=== PATIENT | female | born 1940 | race African-American/Black ===

== ENCOUNTER 2017-04-22 16:24 | Observation (INO) | payer OTHER ==
[~2017-04-22] VITALS: Ht 172.7 cm; Wt 98.9 kg
[2017-04-22 16:00] VITALS: BP 187/98; PULSE 85; RESP 20; TEMP 98.1; O2SAT 96
[~2017-04-22 16:24] MED LIST: AMIT50TA3 PO; CENTCHW4 CHEW; DORZ2SOL EACH EYE; FISHCAP4 PO; HUMA75IN SQ; HYDR-3583 PO; LATA0.002 EACH EYE; LOSA50TA2 PO; METF500T PO; NALOXONE HCL 0.4 MG/ML AMP IV PRN; ONDANSETRON HCL 4 MG/2 ML VIAL IVP PRN; SODIUM CHLORIDE 0.9% FLUSH 10 ML FLUSH IV FLUSH PRN
[2017-04-22] MEDS: ACETAMINOPHEN/HYDROcodone 325 MG/10 MG TAB PO PRN ×2 (16:53→21:25)
[2017-04-22] MEDS ORDERED: HUMA75IN SQ ×2 (17:00)
[2017-04-22] MEDS ORDERED: ACETAMINOPHEN 325 MG TAB PO PRN (17:00)
[2017-04-22] MEDS ORDERED: BISACODYL 10 MG SUPP RECTAL PRN (17:00)
[2017-04-22] MEDS ORDERED: DEXTROSE 50% IN WATER 50 ML VIAL(D50) IV PRN (17:15)
[2017-04-22] MEDS ORDERED: GLUCAGON 1 MG/ML VIAL OTHER PRN (17:15)
--- NOTE | 2017-04-22 17:26 | HHI.HP ---
[facility] Primary [facility] Physician Unknown Admission Diagnosis Diagnoses: (1) Lower extremity edema Diagnosis: Principal (2) Accelerated hypertension Diagnosis: Principal (3) Hyperlipidemia Diagnosis: Secondary (4) Diabetes Diagnosis: Secondary Chief Complaint: Lower extremity edema Travel History International Travel<30 Days: No Contact w/Intl Traveler <30 Da: No History of Present Illness Written by Iglesia Enamorado, acting as scribe for Dr. Guerra on 04/22/17 at 17: 10. 76-year-old female with known history of hypertension, diabetes, chronic back pain, chronic cephalgia who presented to hospital because of lower extremity edema. Patient indicates that she is probably 3 week history of lower extremity edema. She has been to her primary medical doctor's office and is undergoing management and workup at this time, she was started on Lasix. She indicates that Lasix does not work for her edema. Patient denies any chest pain , shortness of breath, dyspnea. Unable to determine if she has dyspnea on exertion because she states that she does not walk that much due to her chronic back pain. She does use a walker intermittently for ambulation. Patient does not recall ever having any type of ultrasound done of her heart. Patient indicates that she is had this swelling for approximately 3 weeks and started develop some black discoloration of her feet so she was worried because of her diabetes so she came to the ER for evaluation. 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 Since then she's been having headache has undergone MRI studies and was told by a neurologist that she has migraine cephalgia. She does not feel that that is appropriate diagnosis. She has had migraines in the past with photophobia, and states that this headache is not the same. She has had chronic back pain which she states that she had an injection done approximately the same time in November, as well as 3 days ago she had another injection into her back. Patient had workup done emergency department and was recommended observation in the hospital for further evaluation and management Review of Systems Constitutional: DENIES: Diaphoretic episodes, Fatigue, Fever, Weight gain, Weight loss, Chills, Dizziness, Change in appetite, Night Sweats Eyes: DENIES: Blurred vision, Diplopia, Eye inflammation, Eye pain, Vision loss , Double Vision Ears, nose, mouth, throat: DENIES: Vertigo, Nasal discharge, Throat pain, Ear Pain, Running Nose, Sinus Pain Respiratory: DENIES: Apneas, Cough, Snoring, Wheezing, Hemoptysis, Sputum production, Shortness of breath Cardiovascular: COMPLAINS OF: Lower Extremity Edema, DENIES: Chest pain, Palpitations, Syncope, Dyspnea on Exertion, PND, Orthopnea, Claudication Gastrointestinal: DENIES: Abdominal pain, Black stools, Bloody stools, Constipation, Diarrhea, Nausea, Vomiting, Difficulty Swallowing, Anorexia Neurologic: COMPLAINS OF: Headache, DENIES: Abnormal gait, Localized weakness , Paresthesias, Seizures, Speech Problems, Tremor, Poor Balance Past Family Social History Past Medical History Hypertension Hyperlipidemia Diabetes Past Surgical History Zayra fundoplication Abdominal hernia repair Hysterectomy Cholecystectomy Cervical spine surgery Reported Medications Reported Meds & Active Scripts Active Reported Humalog Mix 75-25 Kwikpen Pen Inj (Insulin Lispro Protamine-Lispro 75-25 Inj) 300 unit/3 ML Pen 30 Units SQ HS Humalog Mix 75-25 Kwikpen Pen Inj (Insulin Lispro Protamine-Lispro 75-25 Inj) 300 unit/3 ML Pen 25 Units SQ AC BREAKFAST Fish Oil + D3 (Fish Oil-Cholecalciferol) 1,200-1,000 Mg-Unit Cap 1 Cap PO DAILY Centrum (Multiple Vitamins W/ Minerals) 1 Chew 1 Tab CHEW DAILY Dorzolamide Opth Drops (Dorzolamide HCl) 2% Soln 1 Drop EACH EYE TID Latanoprost Opth Drops (Latanoprost) 0.005% Drops 1 Drop EACH EYE HS Refrigerate until opened. Hydrocodone-Acetaminophen 10-325 mg Tab 1 Tab PO Q4H PRN Losartan-Hydrochlorothiazide 50-12.5 Mg Tab 1 Tab PO DAILY Amitriptyline (Amitriptyline HCl) 50 Mg Tab 50 Mg PO HS Metformin (Metformin HCl) 500 Mg Tab 500 Mg PO TIDPC With meals Allergies: Coded Allergies: Codeine (Verified Allergy, Severe, Hallucinations, 04/22/17) Dilaudid (Verified Allergy, Severe, Hallucinations, 04/22/17) Penicillin (Verified Allergy, Severe, Hallucinations, 04/22/17) Sulfa (Verified Allergy, Severe, Hallucinations, 04/22/17) pt sts n, v too Family History Reviewed and rather unremarkable. Patient states that her father was an alcoholic. Her grandmother at age 91, mother at age 83. Denied any heart disease, lung disease, diabetes, seizures, cancer, stroke Social History Patient denies any tobacco, alcohol or illicit drugs Physical Exam Vital Signs Vital Signs Date Time Temp Pulse Resp B/P Pulse Ox O2 Delivery O2 Flow Rate FiO2 04/22/17 16:00 98.1 85 20 187/98 96 Physical Exam GENERAL: Well-developed, well-nourished, in no acute distress. alert and orientated HEENT: Head is normocephalic without any lesions or masses noted. Facial features are symmetric. Eyes: Pupils equal round reactive to light. Extraocular muscles are intact. Conjunctivae were clear. Oropharyngeal: Pharynx without any erythema edema. Tongue is midline without deviation. Buccal mucosa is moist without any masses or lesions NECK: Supple without any masses. Trachea midline no deviation. No JVD, no bruits are appreciated CARDIAC: Regular rhythm, regular rate. S1/S2 are heard. No murmurs gallops or rubs. LUNGS: Clear to auscultation bilaterally. No wheeze, rhonchi or rales. No use of accessory muscles on inspiration or expiration. ABDOMEN: Soft, nontender. Nondistended. Bowel sounds heard in all 4 quadrants. No organomegaly or masses. Negative rebound, negative guarding EXTREMITIES: 2+ pitting edema noted bilateral lower extremities. Right lower extremity is 1 cm larger than left lower extremity. , pulses are equal bilaterally. No cyanosis or clubbing NEUROLOGY: Mood and affect appear appropriate. Cranial nerves II through XII grossly intact. Muscle strength 5/5 in upper and lower extremities bilaterally. Deep tendon reflexes are 2+ in upper and lower extremities bilaterally. Assessment and Plan Assessment and Plan 76-year-old female with: Bilateral lower extremity edema, right mildly larger than left Unknown etiology this time, could be cardiovascular, dependent edema, associated with diabetic vascular disease, accelerated hypertension We'll give patient Bumex 1 mg IV and monitor response Increase HCTZ to 50 mg daily Obtain echocardiogram to evaluate cardiac function Obtain lower extremity ultrasound Accelerated hypertension Continue monitor blood pressure Continue home medications Increase HCTZ Azotemia unknown chronicity Given patient's age, hypertension, diabetes, likely chronic medical renal disease continue monitor renal function Diabetes Accu-Cheks with sliding scale insulin DVT prevention Subcutaneous heparin This note was transcribed by scribe [Iglesia Enamorado]. I, Dr. Nichelle Guerra personally performed the history, physical exam, and medical decision making; and confirmed the accuracy of the information in the transcribed note. Authenticated by Dr. Nichelle Guerra on 04/22/17 at 17:15. Problem Qualifiers (1) Hyperlipidemia: Qualified Code: E78.5 - Hyperlipidemia, unspecified hyperlipidemia type (2) Diabetes: Qualified Code: E11.8 - Type 2 diabetes mellitus with complication, with long- term current use of insulin Iglesia Enamorado Apr 22, 2017 17:26 Nichelle Guerra MD Apr 22, 2017 17:34
[2017-04-22] MEDS ORDERED: BUMETANIDE INJ 1 MG/4 ML VIAL IV PUSH ONE (17:30)
[2017-04-22] MEDS: DORZOLAMIDE 2% OPTH SOLN 200 DROP/10 ML BTLO EACH EYE SCH (17:47)
[2017-04-22] MEDS ORDERED: GABA100C4 PO (17:51)
[2017-04-22] MEDS ORDERED: cloNIDine HCL 0.1 MG TAB PO PRN (18:00)
[2017-04-22 20:00] VITALS: BP 136/71; PULSE 63; PULSE 68; RESP 18; TEMP 97.1; O2SAT 96
[2017-04-22] MEDS: DOCUSATE SODIUM 50 MG/SENNA 8.6 MG TAB PO SCH (21:00)
[2017-04-22] MEDS ORDERED: LATANOPROST 0.005% OPHT SOLN 2.5 ML BTL EACH EYE SCH (21:00)
[2017-04-22] MEDS ORDERED: SENNOSIDES 8.6 MG TAB PO PRN (21:00)
[2017-04-22] MEDS: INSULIN ASPART SUPPLEMENTAL SCALE SQ SCH (21:00)
[2017-04-22] MEDS ORDERED: MAGNESIUM HYDROXIDE SUSP 30 ML CUP PO PRN (21:00)
[2017-04-22] MEDS ORDERED: AMITRIPTYLINE HCL 50 MG TAB PO SCH (21:00)
[2017-04-22] MEDS: SODIUM CHLORIDE 0.9% FLUSH 10 ML FLUSH IV FLUSH SCH (21:22)
[2017-04-22] MEDS: HEPARIN SODIUM - SQ 10,000 UNITS/ML VIAL SQ SCH (21:26)
[2017-04-23] VITALS: BP 132/68; PULSE 67; RESP 18; TEMP 96.3; O2SAT 97
[2017-04-23] MEDS: ACETAMINOPHEN/HYDROcodone 325 MG/10 MG TAB PO PRN ×2 (03:41→09:15)
[2017-04-23 04:00] VITALS: BP 134/68; PULSE 61; RESP 18; TEMP 98.8; O2SAT 95
[2017-04-23 05:50] LABS: POTASSIUM 3.2 MEQ/L (3.5-5.1)
[2017-04-23 08:00] VITALS: BP 126/63; PULSE 59; RESP 20; TEMP 97.3; O2SAT 94
[2017-04-23] MEDS: DOCUSATE SODIUM 50 MG/SENNA 8.6 MG TAB PO SCH (08:46)
[2017-04-23] MEDS: HEPARIN SODIUM - SQ 10,000 UNITS/ML VIAL SQ SCH (08:47)
[2017-04-23] MEDS: DORZOLAMIDE 2% OPTH SOLN 200 DROP/10 ML BTLO EACH EYE SCH ×2 (08:48→12:59)
[2017-04-23] MEDS: SODIUM CHLORIDE 0.9% FLUSH 10 ML FLUSH IV FLUSH SCH (08:48)
[2017-04-23] MEDS ORDERED: HYDROCHLOROTHIAZIDE 12.5 MG CAP PO SCH ×2 (09:00)
[2017-04-23] MEDS ORDERED: LACTULOSE SYRUP 20 GM/30 ML CUP PO PRN (09:00)
[2017-04-23] MEDS ORDERED: NON-FORMULARY DRUG (Fish Oil-Cholecalciferol (Fish Oil + D3) 1 CAP) PO SCH (09:00)
[2017-04-23] MEDS ORDERED: MULTIVITAMINS/MINERALS THERAPEUTIC TAB PO SCH (09:00)
[2017-04-23] MEDS ORDERED: LOSARTAN 50 MG TAB PO SCH (09:00)
[2017-04-23] MEDS: INSULIN ASPART SUPPLEMENTAL SCALE SQ SCH ×2 (09:20→11:16)
--- NOTE | 2017-04-23 09:41 | HHI.PR ---
Subjective Remarks Patient reports she is feeling better today. Headache is mostly resolved. She has been urinating a lot and bilateral lower extremity swelling has significantly improved. Objective Vitals Vital Signs Date Time Temp Pulse Resp B/P Pulse Ox O2 Delivery O2 Flow Rate FiO2 04/23/17 08:00 97.3 59 20 126/63 94 04/23/17 04:00 98.8 61 18 134/68 95 04/23/17 00:00 96.3 67 18 132/68 97 04/22/17 20:00 68 04/22/17 20:00 97.1 63 18 136/71 96 04/22/17 16:00 98.1 85 20 187/98 96 I/O 04/22/17 04/22/17 04/22/17 04/23/17 04/23/17 04/23/17 07:00 15:00 23:00 07:00 15:00 23:00 Intake Total 240 ml 100 ml Balance 240 ml 100 ml Intake Oral 240 ml 100 ml # Voids 2 1 # Bowel Movements 0 0 Result Diagram: 04/23/17 0430 Imaging Last Impressions Lower Extremity Ultrasound 04/23/17 0000 Signed Impressions: Service Date/Time: April 07:43 - CONCLUSION: The study is negative for deep venous thrombosis bilateral lower extremity. Ramos Paz MD Objective Remarks GENERAL: This is a well-nourished, well-developed patient, in no apparent distress. CARDIOVASCULAR: Normal rate and regular rhythm without murmurs, gallops, or rubs. RESPIRATORY: Good respiratory efforts. Breath sounds equal and clear to auscultation bilaterally. GASTROINTESTINAL: Abdomen soft, non-tender, non-distended. Normal active bowel sounds MUSCULOSKELETAL: Trace bilateral lower extremity edema NEURO: Alert & Oriented x4 to person, place, time, situation. Moves all ext x4 PSYCH: Appropriate mood and affect. A/P Problem List: (1) Lower extremity edema ICD Code: R60.0 Status: Acute (2) Accelerated hypertension ICD Code: I10 Status: Acute (3) Hyperlipidemia ICD Code: E78.5 Status: Acute (4) Diabetes ICD Code: E11.9 Status: Acute Assessment and Plan 76-year-old female admitted with bilateral lower extremity edema and mild pulmonary vascular congestion. The patient was given the dose of Bumex 1 mg IV and responded really well. Edema mostly resolved. A 2-D echocardiogram obtained revealed mildly depressed LVEF of 45-50%. The patient's medications were adjusted as followed. HCTZ increased to 50 mg daily. She will continue on losartan. She was started on Bumex. She was counseled on heart failure diet and limiting her fluid intake. Patient is advised to follow-up outpatient with a steel estimator. Lower extremity Doppler was negative. Patient was not started on a Beta suzi due to potential of lowering BP too low since we already adjusted her BP meds. This can be started outpatient. Other conditions treated include: Accelerated hypertension: The patient's antihypertensives were adjusted as noted above. Blood pressure better controlled. Continue monitor blood pressure Continue home medications Increase HCTZ Azotemia unknown chronicity: Probably chronic medical renal disease. Patient has hypertension and diabetes. Renal function improved Headache: Patient reports improvement with Lortab. Patient was previously told she had migraine by neurologist. I advised her to follow-up outpatient. Diabetes Patient may resume home dose diabetic medications. Follow-up with PCP. Discharge Planning Discharge home today in good condition Follow up with: PCP, cardiology Diet: Heart healthy. Limit fluid intake to less than 1.5 L a day Meds: Per med rec Activity: Regular as tolerated. Problem Qualifiers (1) Hyperlipidemia: Qualified Code: E78.5 - Hyperlipidemia, unspecified hyperlipidemia type (2) Diabetes: Qualified Code: E11.8 - Type 2 diabetes mellitus with complication, with long- term current use of insulin Nichelle Guerra MD Apr 23, 2017 09:41
--- NOTE | 2017-04-23 10:04 | RADHPO ---
EXAM DATE/TIME: 04/23/2017 07:43 [facility] COMPARISON: No previous studies available for comparison. INDICATIONS : Bilateral leg swelling. MEDICAL HISTORY : Inflammatory bowel disease. Arthritis. Hypercholesterolemia. Diabetes. Hypertension. Ogden palsy. SURGICAL HISTORY : Hysterectomy.Cholecystectomy. Plates and screws in neck. ENCOUNTER: Initial ACUITY: 3 weeks PAIN SCORE: 4/10 LOCATION: Right leg. TECHNIQUE: Venous ultrasound of the left and right leg was performed from the inguinal ligament to the proximal calf. Real-time, color Doppler and spectral tracing, compression and augmentation techniques were us ed. FINDINGS: RIGHT LEG: There is normal compressibility of the deep venous system from the inguinal region to the proximal ca lf. No echogenic clot is seen in the lumen of the common femoral, femoral, popliteal, and posterior tibial veins. There is a normal response of the venous system to proximal and distal augmentation an d respiration. LEFT LEG: There is normal compressibility of the deep venous system from the inguinal region to the proximal ca lf. No echogenic clot is seen in the lumen of the common femoral, femoral, popliteal, and posterior tibial veins. There is a normal response of the venous system to proximal and distal augmentation an d respiration. CONCLUSION: The study is negative for deep venous thrombosis bilateral lower extremity. Ramos Paz MD on April 23, 2017 at 10:01 Board Certified Radiologist. This report was verified electronically.
--- NOTE | 2017-04-23 11:01 | ECHRPT ---
Indication: cardiomypathy CONCLUSIONS Normal left ventricular size. wall thickness is normal. The left ventricular systolic function is m oderately reduced with an estimated ejection fraction in the range of 40-45%. There is a wall motion abnormali ty. Atrial septal aneurysm is present (benign finding). Mild mitral annular calcification. Mild mitral valve regurgitation. Trileaflet aortic valve. Mild thickening of the aortic valve leaflets. No aortic valve regurgitation . No aortic valve stenosis. Aortic valve sclerosis is present. BP: 187 / 98 HR: 85 Rhythm: Other MEASUREMENTS (Male / Female) Normal Values Technical Quality:Fair 2D ECHO LV Diastolic Diameter PLAX 4.2 cm 4.2 - 5.9 / 3.9 - 5.3 cm LV Systolic Diameter PLAX 3.4 cm IVS Diastolic Thickness 0.9 cm 0.6 - 1.0 / 0.6 - 0.9 cm LVPW Diastolic Thickness 0.7 cm 0.6 - 1.0 / 0.6 - 0.9 cm LV Relative Wall Thickness 0.4 RV Internal Dim ED PLAX 2.0 cm LA Systolic Diameter LX 3.5 cm 3.0 - 4.0 / 2.7 - 3.8 cm M-MODE Aortic Root Diameter MM 2.8 cm AV Cusp Separation MM 2.1 cm DOPPLER Mitral E Point Velocity 76.5 cm/s Mitral A Point Velocity 135.0 cm/s Mitral E to A Ratio 0.6 LV E' Lateral Velocity 6.4 cm/s Mitral E to LV E' Lateral Ratio 11.9 TR Peak Velocity 270.0 cm/s TR Peak Gradient 29.2 mmHg FINDINGS Left Ventricle Normal left ventricular size. wall thickness is normal. The left ventricular systolic function is m oderately reduced with an estimated ejection fraction in the range of 40-45%. There is a wall motion abnormali ty. Right Ventricle Normal right ventricular size and systolic function. Left Atrium The left atrial size is normal. Right Atrium The right atrial size is normal. Atrial Septum Atrial septal aneurysm is present (benign finding). No atrial level shunt is demonstrated by color f low Doppler interrogation. Aorta The aortic root and proximal ascending aorta are not well visualized. The aortic root and proximal a scending aorta are normal in size on limited imaging. Mitral Valve Mild mitral annular calcification. Mild mitral valve regurgitation. No mitral valve stenosis. Aortic Valve Trileaflet aortic valve. Mild thickening of the aortic valve leaflets. No aortic valve regurgitation . No aortic valve stenosis. Aortic valve sclerosis is present. Tricuspid Valve Structurally normal tricuspid valve. No tricuspid valve stenosis or regurgitation. Pulmonary Valve The pulmonary valve is not well visualized. Vessels The inferior vena cava is normal in size. Pericardium No pericardial effusion. Ian Israel MD, FACC (Electronically Signed) Final Date:23 April 2017 11:00
[2017-04-23] MEDS ORDERED: LOSA50TA PO (11:41)
[2017-04-23] MEDS ORDERED: BUME1TAB PO (11:41)
[2017-04-23] MEDS ORDERED: HYDR50TA3 PO (11:41)
[2017-04-23] MEDS ORDERED: HYDR-3583 PO (11:42)
[2017-04-23] MEDS ORDERED: POTASSIUM CHLORIDE 20 MEQ CONTROLLED RELEASE TAB PO ONE (11:45)
[2017-04-23 12:00] VITALS: BP 141/66; PULSE 66; RESP 20; TEMP 97.3; O2SAT 100
== END 2017-04-23 13:50 | disposition home or self-care (01) ==
LOC: PHEDDLT 16:24 → PH3A 16:25
PROVIDERS: ADMIT Family Medicine; ATTEND Family Medicine
DX: R60.0 Localized edema (principal); R51 Headache; R79.89 Other specified abnormal findings of blood chemistry; G89.29 Other chronic pain; M54.9 Dorsalgia, unspecified; I10 Essential (primary) hypertension; E11.9 Type 2 diabetes mellitus without complications; E78.5 Hyperlipidemia, unspecified; Z79.4 Long term (current) use of insulin; Z88.0 Allergy status to penicillin; Z88.2 Allergy status to sulfonamides; Z88.5 Allergy status to narcotic agent
CPT/HCPCS: 71010; 80048; 80053; 81001; 82948; 83880; 84443; 85025; 85610; 85652; 85730; 87086; 93005; 93306; 93970; 96372; 96374; 99285; G0378; J1644; J1815; 99281